=== PATIENT | male | born 1960 | race Caucasian/White ===

== ENCOUNTER → 2017-01-06 | Outpatient (CLI) | payer OTHER | LOC: HEART 5 10:56 | DX: I11.0 Hypertensive heart disease with heart failure (principal); I50.22 Chronic systolic (congestive) heart failure; R60.9 Edema, unspecified; E78.5 Hyperlipidemia, unspecified; M79.669 Pain in unspecified lower leg; I25.119 Atherosclerotic heart disease of native coronary artery with unspecified angina pectoris; R06.02 Shortness of breath ==

== ENCOUNTER → 2020-12-16 | Outpatient (CLI) | payer OTHER ==
[~2020-12-16] MED LIST: BACTRIM DS TAB1 EACH PO; FLEXERIL 10 MG10 MG PO; MOBIC7.5 MG PO
== END ==
LOC: HEART 5 12-10 08:45
DX: R07.9 Chest pain, unspecified (principal); R94.39 Abnormal result of other cardiovascular function study
CPT/HCPCS: 78452; A9502; J2785

== ENCOUNTER → 2021-08-11 | Outpatient (CLI) | payer OTHER | LOC: HEART 5 10:45 | DX: J44.9 Chronic obstructive pulmonary disease, unspecified (principal) | CPT/HCPCS: 94060; 94729 ==

== ENCOUNTER → 2021-08-14 | Outpatient (CLI) | payer OTHER | LOC: RAD 13:49 | DX: G47.34 Idiopathic sleep related nonobstructive alveolar hypoventilation (principal) | CPT/HCPCS: 36600; 71046; 82803 ==

== ENCOUNTER 2021-12-22 16:00 | Emergency (ER) | payer OTHER ==
[2021-12-22 17:07] LABS: HEMOGLOBIN 17.1 gm/dl (14.0-17.5); RED BLOOD COUNT 5.21 M/UL (4.20-5.50); WHITE BLOOD COUNT 17.2 K/UL (4.5-11.0)
[2021-12-22 17:30] LABS: BUN/CREATININE RATIO 15 (0-10)
[2021-12-22] MEDS ORDERED: PERCOCET 5/325 T1 EA PO (20:16)
[2021-12-22] MEDS ORDERED: AUGMENTIN XR 11 EACH PO (20:16)
== END 2021-12-22 20:59 | disposition home or self-care (01) ==
LOC: ER1 16:00
PROVIDERS: Physician Assistant Medical
DX: K61.1 Rectal abscess (principal); J44.9 Chronic obstructive pulmonary disease, unspecified; E11.9 Type 2 diabetes mellitus without complications; F17.290 Nicotine dependence, other tobacco product, uncomplicated; I10 Essential (primary) hypertension
CPT/HCPCS: 46040; 80053; 81001; 85025; 87070; 87205; 96374; 99284; J0295; Q9967

== ENCOUNTER → 2021-12-30 | Outpatient (CLI) | payer OTHER ==
[~2021-12-30] MED LIST changes: +AUGMENTIN XR 11 EACH PO; +PERCOCET 5/325 T1 EA PO
== END ==
LOC: KOH-I 15:30
DX: F17.210 Nicotine dependence, cigarettes, uncomplicated (principal)
CPT/HCPCS: 71271

== ENCOUNTER 2022-02-16 12:08 | Emergency (ER) | payer OTHER | END 2022-02-16 16:05 | disposition home or self-care (01) | LOC: ER1 12:08 | DX: S61.305A Unspecified open wound of left ring finger with damage to nail, initial encounter (principal); E11.9 Type 2 diabetes mellitus without complications; I10 Essential (primary) hypertension; J44.9 Chronic obstructive pulmonary disease, unspecified; Z79.899 Other long term (current) drug therapy; F17.210 Nicotine dependence, cigarettes, uncomplicated; W23.0XXA Caught, crushed, jammed, or pinched between moving objects, initial encounter; Y92.009 Unspecified place in unspecified non-institutional (private) residence as the place of occurrence of the external cause; Z23 Encounter for immunization | CPT/HCPCS: 11760; 73130; 90471; 90715; 99283 ==

== ENCOUNTER 2022-04-11 10:06 | Emergency (ER) | payer OTHER ==
[2022-04-11 11:59] LABS: HEMOGLOBIN 15.6 gm/dl (14.0-17.5); RED BLOOD COUNT 4.8 M/UL (4.20-5.50); WHITE BLOOD COUNT 14.3 K/UL (4.5-11.0)
[2022-04-11 12:24] LABS: BUN/CREATININE RATIO 13 (0-10)
[2022-04-11] MEDS ORDERED: AMOX TR-K CLV1 EAC4 PO (15:15)
== END 2022-04-11 15:25 | disposition home or self-care (01) ==
LOC: ER1 10:06
PROVIDERS: Physician Assistant
DX: K61.1 Rectal abscess (principal); I11.0 Hypertensive heart disease with heart failure; J44.9 Chronic obstructive pulmonary disease, unspecified; Z90.49 Acquired absence of other specified parts of digestive tract; F17.200 Nicotine dependence, unspecified, uncomplicated
CPT/HCPCS: 72193; 80053; 85025; 87070; 87205; 99284; Q9967